=== PATIENT | female | born 1975 | race Two or more races ===

== ENCOUNTER → 2017-07-14 10:13 | Outpatient (CLI) | payer OTHER, SELFPAY ==
[2017-07-14 09:28] VITALS: BP 119/68; BMI 23.0
== END ==
PROVIDERS: Visit Provider Obstetrics & Gynecology
DX: O20.0 Threatened abortion (principal); Z3A.00 Weeks of gestation of pregnancy not specified
CPT/HCPCS: 36415; 84702; 86850; 86900

== ENCOUNTER → 2017-07-14 14:51 | Outpatient (CLI) | payer OTHER, SELFPAY ==
[2017-07-14 09:28] VITALS: BP 119/68; BMI 23.0
[2017-07-14 21:06] LABS: Chlamydia Trachomatis by PCR Negative (Negative); Neisserai gonorrhoeae by PCR Negative (Negative); Probe Check PASS; Sample Adequacy Control PASS; Specimen Processing Control PASS
== END ==
PROVIDERS: Visit Provider Obstetrics & Gynecology
DX: O09.529 Supervision of elderly multigravida, unspecified trimester (principal); Z3A.00 Weeks of gestation of pregnancy not specified; Z12.4 Encounter for screening for malignant neoplasm of cervix
CPT/HCPCS: 87086; 87491; 87591

== ENCOUNTER → 2017-07-15 09:31 | Outpatient (CLI) | payer OTHER, SELFPAY ==
[2017-07-14 09:28] VITALS: BP 119/68; BMI 23.0
--- NOTE | 2017-07-15 09:35 | US_ITS ---
STUDY: FIRST TRIMESTER OBSTETRICAL ULTRASOUND REASON FOR EXAM: Female, 41 years old. Bleeding. LMP: May 16, 2017. TECHNIQUE: Transvaginal PRIOR ULTRASOUND: None. FINDINGS: There is visualization of a single gestational sac in a normal intrauterine position. The mean sac diameter (MSD) measures 2.91 cm, indicating an estimated gestational age (EGA) of 8 weeks, 1 days. The gestational sac shape is within normal limits. There is a visualized yolk sac. The yolk sac measures 10.5 mm. The placenta is non-visualized. There is visualization of an embryo with no cardiac activity, consistent with intrauterine demise. The crown-rump length (CRL) measures 1.38 cm, indicating an estimated gestational age (EGA) of 7 weeks, 5 days. The estimated gestation age (EGA) by LMP is 8 weeks, 4 days. The estimated date of delivery (RIYA) by LMP is February 20, 2018. The estimated gestation age (EGA) by US is 8 weeks, 0 days. The estimated date of delivery (RIYA) by US is February 24, 2018. The uterus measures 13.8 cm x 8.2 size by 7.6 cm. 2 fibroids are seen. The larger measures 2.9 cm is by 2.4 size by 2.2 cm. The cervix is closed. The right ovary is not visualized. The left ovary is not visualized. There is no fluid in the cul de sac. US/Transvaginal w/Preg US IMPRESSION: demise. The age corresponds to 8 weeks. Electronically Signed: Amol Sales MD at 10:19 EST Tel [phone], Service support ,
== END ==
PROVIDERS: Visit Provider Nurse Practitioner Women's Health
DX: O20.0 Threatened abortion (principal); Z3A.00 Weeks of gestation of pregnancy not specified
CPT/HCPCS: 76817

== ENCOUNTER 2017-07-18 05:25 | Day surgery (SDC) | payer OTHER, SELFPAY ==
[2017-07-14 09:28] VITALS: BP 119/68; BMI 23.0
--- NOTE | 2017-07-18 | POC_PTH ---
PATIENT: IWONA CRAVEN LOC: [facility] [place] U#:[id number] AGE/SX: 41/F ROOM: RE07/18/[address]: Dr. Abena Bucio MD : 1975 BED: DIS: 07/18/2017 SPEC #: [id number] RECD: 07/18/17 14:35 STATUS: CATARINO MIRACLE #: [id number] SARTHAK: 07/18/17 00:[address]: Abena Bucio DEPT: SURGICAL PATHOLOGY RECD BY: Tripp Fields ENTERED: 07/18/17 14:35 SP TYPE: PROD CONC OTHR DR: No Primary Care Phys Tissues: Product of conception, NOS Procedures: Surgery Specimen Level IV HEADER OPERATION: Dilation and curettage suction PRE-OP DIAGNOSIS: Missed TISSUE SUBMITTED: Products of conception MICROSCOPIC DIAGNOSIS Endometrium, curettage: Chorionic villi, decidualized stroma and trophoblastic cells consistent with products of conception. AM:jun 07/19/17 MICROSCOPIC DESCRIPTION Slides are reviewed. GROSS DESCRIPTION Received in fixative is one container labeled with the patient's name and designated products of conception. The specimen consists of multiple irregular fragments of pink-mills soft tissue that in aggregate measure 9 x 6.5 x 1 cm. parts are not grossly recognized. [employer] Tractor Operator portions are submitted in one cassette. / AM:jun 07/18/17 TC:5 CPT: 32635
[2017-07-18 06:16] VITALS: BP 105/61; PULSE 73; RESP 16; TEMP 36.7; O2SAT 100; BMI 22.6
[2017-07-18] MEDS: Doxycycline 100 MG CAPSULE PO (07:30)
--- NOTE | 2017-07-18 07:39 | PCM.OPRPT ---
Problem List (1) Missed Status: Acute Report of Operation Date of Procedure: 07/18/17 Pre-Operative Diagnosis: missed ab Post-Operative Diagnosis: same Surgery/Procedure Performed:: Suction D&C Description of Surgical Findings:: 11 week size uterus 9 week missed AB irregular uterine landscape due to suspected submucosal fibroids Type of Anesthesia:: Local MAC Specimen's removed: poc Estimated Blood Loss (mL): 100 Fluids Replaced: crystalloid Description of Procedure: Patient was evaluated preoperatively and found to have a missed at 9 weeks of with a pole measuring only 8 weeks with no heart tones seen. Patient was counseled and offered medical management versus surgical and patient chose suction D&C. Patient received IV anesthesia was prepped and draped in normal sterile fashion in the dorsal lithotomy position. Cervix was grasped with ring forceps and previously dilated to allow passage of a 10 mm suction curette. Uterus sounded to 11cm. Multiple passes were made with the suction curette to remove products of conception and then sharp curettage was formed to confirm all removal of packs of conception. All instruments were removed from the vagina and patient was awoken and taken recovery in stable condition. - Complications none - Admit VTE Documentation VTE Present on Admission: No VTE Mechan Device Prophylaxis: SCD's
--- NOTE | 2017-07-18 07:39 | PCM.DC.D&C ---
Discharge Diet: No Restrictions Discharge Activity: Return to Normal Activity, May Shower, May Take a Tub Bath Allergies/Adverse Reactions: Allergies No Known Allergies Allergy (Unverified 07/14/17 09:28) Medications to take at Discharge vitamin,calcium,gqawdkuu-ktdm-hzcit acid tablet 1 tab PO QDAY 07/14/17 Primary Care Physician: Care Physician,No Primary [Primary Care Provider] - Please Follow Up With: Abena Bucio MD - [phone] When: 2 weeks
[2017-07-18 08:01] VITALS: BP 103/65; BP 105/61; PULSE 69; RESP 18; TEMP 37.2; O2SAT 97
[2017-07-18 08:05] VITALS: BP 105/61; BP 106/65; PULSE 71; RESP 18; O2SAT 97
[2017-07-18 08:10] VITALS: BP 103/72; BP 105/61; PULSE 68; RESP 18; O2SAT 100
[2017-07-18 08:15] VITALS: BP 105/61; BP 106/74; PULSE 64; RESP 16; TEMP 36.5; O2SAT 100
[2017-07-18 09:24] VITALS: BP 105/61
== END 2017-07-18 09:31 | disposition home or self-care (01) ==
LOC: SDC 05:26 → AC 05:27
PROVIDERS: Visit Provider Obstetrics & Gynecology
PROC: (CPT 59812; principal; 2017-07-18 07:00)
DX: O03.4 Incomplete spontaneous abortion without complication (principal)
CPT/HCPCS: 59812; 88305; J7120; J2405

== ENCOUNTER → 2017-08-02 15:03 | Outpatient (CLI) | payer OTHER, SELFPAY ==
--- NOTE | 2017-08-02 | IMM_PTH ---
PATIENT: IWONA CRAVEN LOC: [facility] U#:[id number] AGE/SX: 49/F ROOM: RE08/02/[address]: Dr. Abena Bucio MD : 1975 BED: DIS: SPEC #: [id number] RECD: 08/04/17 13:51 STATUS: CATARINO REBennie #: [id number] SARTHAK: 08/02/17 00:[address]: Abena Bucio DEPT: IMMUNOHISTOCHEMISTRY RECD BY: Libby Bragg ENTERED: 08/04/17 13:52 SP TYPE: IMMUNO OTHR DR: No Primary Care Phys Tissues: A - Endocervical B - Uterine cervix, NOS Procedures: p16 (initial) KI-67 (add) PHYSICIAN & INSTITUTION [place] [id number] SPECIMEN INFORMATION: Tissue Source: A ? ECC, B ? 5 o?clock Clinical Info: JESUS III Specimen Number: [id number] A & B CPT code: 75378 x2, 22099 x2 METHODOLOGY: Deparaffinized sections of prefer/formalin-fixed tissue or PAP/DQ stained slides are incubated with monoclonal/polyclonal antibodies/oligonucleotide probes. Localization is made via biotin free immunoperoxidase method. Appropriate controls are performed and reacted as expected. Results on target cell population are indicated in the following table: RESULTS: ANTIBODY / CLONE RESULT Block A P16 (E6H4) positive, block staining Ki-67 (30-9) positive Block B P16 (E6H4) positive, block staining Ki-67 (30-9) positive These tests were developed and their performance characteristics determined by [facility]. They may not have been cleared or approved by the U.S. Food and Drug Administration. The FDA has determined that such clearance or approval is not necessary. INTERPRETATION: A. ECC: Mild, moderate and severe dysplasia. B. 5 o?clock: Moderate to severe dysplasia. SJ:jun 08/05/17
--- NOTE | 2017-08-02 | ECC_PTH ---
PATIENT: IWONA CRAVEN LOC: [facility] U#:[id number] AGE/SX: 49/F ROOM: RE08/02/[address]: Dr. Abena Bucio MD : 1975 BED: DIS: SPEC #: [id number] RECD: 08/02/17 14:00 STATUS: CATARINO MIRACLE #: [id number] SARTHAK: 08/02/17 00:[address]: Abena Bucio DEPT: SURGICAL PATHOLOGY RECD BY: Tata Major ENTERED: 08/03/17 08:55 SP TYPE: MARIAJOSE CARRASCO DR: Latanya Primary Care Phys Tissues: A - Endocervical B - Endocervical Procedures: Surgery Specimen Level IV HEADER OPERATION: Colposcopy PRE-OP DIAGNOSIS: JESUS III TISSUE SUBMITTED: Duyen BILLY BMaryann 5 o?clock MICROSCOPIC DIAGNOSIS A. ECC: Fragments of squamous epithelium with mild, moderate and severe squamous dysplasia (HGSIL and JESUS I-III). B. Cervix, 5 o?clock, biopsy: Moderate to severe squamous dysplasia (HGSIL and JESUS II-III). Moderate chronic inflammation. DENIS:jun 08/04/17 COMMENT A & B. Immunohistochemistry ([id number]) for surrogate HPV marker (p16) supports the above diagnosis. MICROSCOPIC DESCRIPTION Slides are reviewed. GROSS DESCRIPTION A - Received in fixative is one container labeled with the patient's name and designated ECC. The specimen consists of multiple irregular fragments of mills mucoid tissue that in aggregate measure 1 x 1 x 0.1 cm. The specimen is totally submitted in one cassette. B - Received in fixative is one container labeled with the patient's name and designated 5 o'clock. The specimen consists of one irregular fragment of light mills soft tissue that measures 1 x 0.3 x 0.1 cm. The specimen is totally submitted in one cassette. / DENIS:jun 08/03/17 TC:5 CPT: 06039 x2
== END ==
PROVIDERS: Visit Provider Obstetrics & Gynecology
DX: D06.9 Carcinoma in situ of cervix, unspecified (principal)
CPT/HCPCS: 88305; 88341; 88342

== ENCOUNTER 2017-09-01 05:57 | Day surgery (SDC) | payer OTHER, SELFPAY ==
--- NOTE | 2017-09-01 | IMM_PTH ---
PATIENT: IWONA CRAVEN LOC: [facility] [place] U#:[id number] AGE/SX: 42/F ROOM: RE09/01/[address]: Dr. Abena Bucio MD : 1975 BED: DIS: 09/01/2017 SPEC #: [id number] RECD: 09/02/17 09:53 STATUS: CATARINO REBennie #: [id number] SARTHAK: 09/01/17 00:[address]: Abena Bucio DEPT: IMMUNOHISTOCHEMISTRY RECD BY: Tata Major ENTERED: 09/02/17 09:53 SP TYPE: IMMUNO OT DR: No Primary Care Phys Tissues: Uterine cervix, NOS Procedures: p16 (initial) KI-67 (add) PHYSICIAN & INSTITUTION [place] [id number] SPECIMEN INFORMATION: Tissue Source: A. Cervix Clinical Info: Cervical intraepithelial neoplasia grade III with severe dysplasia Specimen Number: [id number] CPT code: 21201, 04238 METHODOLOGY: Deparaffinized sections of prefer/formalin-fixed tissue or PAP/DQ stained slides are incubated with monoclonal/polyclonal antibodies/oligonucleotide probes. Localization is made via biotin free immunoperoxidase method. Appropriate controls are performed and reacted as expected. Results on target cell population are indicated in the following table: RESULTS: ANTIBODY / CLONE RESULT P16 (E6H4) positive, block staining Ki-67 (30-9) positive, moderate These tests were developed and their performance characteristics determined by [facility]. They may not have been cleared or approved by the U.S. Food and Drug Administration. The FDA has determined that such clearance or approval is not necessary. INTERPRETATION: A. Cervix, biopsy: Moderate to severe squamous dysplasia SJ:yuliana 09/02/17
--- NOTE | 2017-09-01 05:46 | PCM.HP.STD ---
Problem List (1) RENE III (cervical intraepithelial neoplasia grade III) with severe dysplasia Status: Acute History of Present Illness Date of Admission: 09/01/17 Chief Complaint: rene III The patient is a 42 year old F presents for cold knife conization secondary to severe cervical dysplasia. she has a history of abnormal pap smears, and recently had a miscarriage. 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/17 AUTO HEADLIGHT MECHANIC History: - - [facility] Medical History Abnormal Pap smear of cervix (Acute) Family History Father Heart disease Social History Smoking Status: Never smoker alcohol intake: never substance use type: does not use caffeine: No frequency: 3-4 times per week seatbelt use: always do you feel safe at home: Yes additional social history: Lili Reddy- [employer] in [facility] [employer] Pregancy History 4 Elective abortions Hx Para 2 Spontaneous abortions Hx # Term Pregnancies Ectopic pregnancies Hx # Pregnancies Multiple births # of living children Past Pregnancies Del. DateNameGA/WeeksOutcomeRouteBth WeightInfant GenLabor LgthAnesthesiaDel LocatnProviderFOB [id number] [facility] [id number] Latricia Smoking Status: Never smoker Review of Systems Constitutional: Denies: Chills, Fever, Weight Change HEENT: Denies: Head Aches, Sinus Congestion, Sinus Drainage Cardiovascular: Denies: Chest Pain, Palpitations Respiratory: Denies: Cough, Shortness of breath at rest, Sputum production Gastrointestinal: Denies: Abdominal Pain, Nausea, Vomiting Genitourinary: Denies: Dysuria Musculoskeletal: Denies: Joint Pain, Joint Tenderness Skin: Denies: Rash, Wounds Neurological: Denies: Numbness, Tingling, Focal weakness Psychiatric: Denies: Anxiety, Depression, Homicidal Ideations, Suicidal Ideations Hematologic/ Lymphatic: Denies: Easy Bruising, Easy Bleeding VTE Information - Inpt Only VTE Present on Admission: No - Physical Exam General: Alert, Oriented x3, Cooperative HEENT: Atraumatic, EOMI, Normocephalic Neck: Supple, No JVD Lungs: Clear to auscultation, Normal air movement Cardiovascular: Regular rate, No murmurs Abdomen: Bowel Sounds Present, Soft, Non Tender Extremities: No edema Skin: No rashes, No breakdown Musculoskeletal: No Tenderness to Palpation of Joints or Extremities Psych/Mental Status: Normal Affect, Appropriate Comment: Order Caller: uterus not enlarged, cervix without gross lesions, normal adnexa Assessment/Plan 42 yo presents with RENE III 1. RENE III plan cold knife conization due to positive ECC. discussed with patient risk of bleeding, infection. recommend waiting at least 3-6 months prior to next conception. discussed risks of cervical insufficiency.
--- NOTE | 2017-09-01 05:53 | HP.PCM_ITS ---
Problem List (1) RENE III (cervical intraepithelial neoplasia grade III) with severe dysplasia Status: Acute History of Present Illness Date of Admission: 09/01/17 Chief Complaint: rene III The patient is a 42 year old F presents for cold knife conization secondary to severe cervical dysplasia. she has a history of abnormal pap smears, and recently had a miscarriage. 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/17 MILLING/POLISHING OPERATOR History: - - [facility] Medical History Abnormal Pap smear of cervix (Acute) Family History Father Heart disease Social History Smoking Status: Never smoker alcohol intake: never substance use type: does not use caffeine: No frequency: 3-4 times per week seatbelt use: always do you feel safe at home: Yes additional social history: 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 DateNameGA/WeeksOutcomeRouteBth WeightInfant GenLabor LgthAnesthesiaDel LocatnProviderFOB [id number] [facility] [id number] Latricia Smoking Status: Never smoker Review of Systems Constitutional: Denies: Chills, Fever, Weight Change HEENT: Denies: Head Aches, Sinus Congestion, Sinus Drainage Cardiovascular: Denies: Chest Pain, Palpitations Respiratory: Denies: Cough, Shortness of breath at rest, Sputum production Gastrointestinal: Denies: Abdominal Pain, Nausea, Vomiting Genitourinary: Denies: Dysuria Musculoskeletal: Denies: Joint Pain, Joint Tenderness Skin: Denies: Rash, Wounds Neurological: Denies: Numbness, Tingling, Focal weakness Psychiatric: Denies: Anxiety, Depression, Homicidal Ideations, Suicidal Ideations Hematologic/ Lymphatic: Denies: Easy Bruising, Easy Bleeding VTE Information - Inpt Only VTE Present on Admission: No - Physical Exam General: Alert, Oriented x3, Cooperative HEENT: Atraumatic, EOMI, Normocephalic Neck: Supple, No JVD Lungs: Clear to auscultation, Normal air movement Cardiovascular: Regular rate, No murmurs Abdomen: Bowel Sounds Present, Soft, Non Tender Extremities: No edema Skin: No rashes, No breakdown Musculoskeletal: No Tenderness to Palpation of Joints or Extremities Psych/Mental Status: Normal Affect, 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 RENE III plan cold knife conization due to positive ECC. discussed with patient risk of bleeding, infection. recommend waiting at least 3-6 months prior to next conception. discussed risks of cervical insufficiency.
[2017-09-01 06:21] VITALS: BP 109/62; PULSE 71; RESP 16; TEMP 36.4; O2SAT 100; BMI 22.4
[2017-09-01 06:23] LABS: Internal QC Validated? YES +Cl - CLEAR BKGD; Pregnancy, Urine Negative Negative
--- NOTE | 2017-09-01 07:30 | CER_PTH ---
PATIENT: IWONA CRAVEN LOC: [facility] [place] U#:[id number] AGE/SX: 42/F ROOM: RE09/01/[address]: Dr. Abena Bucio MD : 1975 BED: DIS: 09/01/2017 SPEC #: [id number] RECD: 09/01/17 08:08 STATUS: CATARINO MIRACLE #: [id number] SARTHAK: 09/01/17 07:[address]: Abena Bucio DEPT: SURGICAL PATHOLOGY RECD BY: Rocky Salvador ENTERED: 09/01/17 09:35 SP TYPE: CERV OT DR: No Primary Care Phys Tissues: A - Uterine cervix, NOS B - Endocervical Procedures: Surgery Specimen Level IV HEADER OPERATION: Cold knife conization PRE-OP DIAGNOSIS: Cervical intraepithelial neoplasia grade III with severe dysplasia TISSUE SUBMITTED: A ? Cervix, B ? Endocervical curettings MICROSCOPIC DIAGNOSIS A. Cervix, cold knife conization: Vttkibgy-ic-eydogx squamous dysplasia with HPV changes (HGSIL and JESUS II-III). See comment. Dysplastic changes also involve endocervical glands. Chronic cystic cervicitis. Resection margins are free of dysplastic changes. B. Endocervical curettings: Fragments of benign endocervical epithelium and endocervical mucosa and mucus, negative for dysplasia. SJ:juan 09/02/17 COMMENT A. Immunohistochemistry ([id number]) for surrogate HPV marker (p16) supports the above diagnosis. Please make reference to previous specimen [id number] A: ECC with diagnosis of mild, moderate and severe squamous dysplasia. B: Cervix, 5 o?clock, biopsy diagnosis qhfywfla-te-jfxhxf squamous dysplasia. MICROSCOPIC DESCRIPTION Slides are reviewed. GROSS DESCRIPTION A - Received in fixative is one container labeled with the patient's name and designated cervix. The specimen consists of a cold conization specimen measuring 3 cm in diameter and a length of 1.6 cm. No cutaneous mass lesions are identified. No orientation is provided. The nonmucosal surfaces are inked in blue ink. The specimen is radially sectioned and totally submitted in 4 cassettes. B - Received in fixative is one container labeled with the patient's name and designated endocervical curettings. The specimen consists of pinkish-mills mucoid material in aggregate measure 2.1 x 0.5 x less than 0.1 cm. The specimen is totally submitted in 1 cassette. AM/sp 09/01/17 TC:5 CPT: 86276, 58131
[2017-09-01] MEDS: FERRIC SUBSULFATE 8 GM SOLN (07:50)
--- NOTE | 2017-09-01 08:07 | PCM.OPRPT ---
Problem List (1) JESUS III (cervical intraepithelial neoplasia grade III) with severe dysplasia Status: Acute Report of Operation Date of Procedure: 09/01/17 Pre-Operative Diagnosis: JESUS-3 Post-Operative Diagnosis: Same Surgery/Procedure Performed:: cold Knife conization Description of Surgical Findings:: Large cervix Type of Anesthesia:: Local MAC Special Medications: Surgicel Specimen's removed: Cervix and endocervical curettings Drains: none Estimated Blood Loss (mL): 75 cc Fluids Replaced: crystalloid Description of Procedure: Patient was taken to the operating room was placed under MAC anesthesia was prepped and draped in normal sterile fashion the dorsal lithotomy position. Cervix was injected with a paracervical block of 1% lidocaine. Circumferential cone shaped incision was made with the 11 blade scalpel and the specimen sent to pathology for analysis. ECC was collected. The base of the cervix and margins were all cauterized with the Bovie. Surgicel Sturmdorf suture and 2 additional jlvndh-db-iqlyv sutures were used to obtain excellent hemostasis. Monsel's paste was placed over the entire area. Patient was awoken and taken recovery in stable condition Grafts/Implants Used: none - Complications none - Admit VTE Documentation VTE Present on Admission: No VTE Mechan Device Prophylaxis: SCD's
--- NOTE | 2017-09-01 08:10 | OP.PCM_ITS ---
Problem List (1) JESUS III (cervical intraepithelial neoplasia grade III) with severe dysplasia Status: Acute Report of Operation Date of Procedure: 09/01/17 Pre-Operative Diagnosis: JESUS-3 Post-Operative Diagnosis: Same Surgery/Procedure Performed:: cold Knife conization Description of Surgical Findings:: Large cervix Type of Anesthesia:: Local MAC Special Medications: Surgicel Specimen's removed: Cervix and endocervical curettings Drains: none Estimated Blood Loss (mL): 75 cc Fluids Replaced: crystalloid Description of Procedure: Patient was taken to the operating room was placed under MAC anesthesia was prepped and draped in normal sterile fashion the dorsal lithotomy position. Cervix was injected with a paracervical block of 1% lidocaine. Circumferential cone shaped incision was made with the 11 blade scalpel and the specimen sent to pathology for analysis. ECC was collected. The base of the cervix and margins were all cauterized with the Bovie. Surgicel Sturmdorf suture and 2 additional aeptdx-jz-dakbv sutures were used to obtain excellent hemostasis. Monsel's paste was placed over the entire area. Patient was awoken and taken recovery in stable condition Grafts/Implants Used: none - Complications none - Admit VTE Documentation VTE Present on Admission: No VTE Mechan Device Prophylaxis: SCD's
--- NOTE | 2017-09-01 08:13 | PCM.DC.LEE ---
Discharge Diet: No Restrictions Discharge Activity: Return to Normal Activity, May not drive while taking narcotic pain medications. May resume sexual activity in: 4 weeks - Nothing in the vagina for 4 weeks Call your doctor if you observe: Fever of 101 or Higher, Using more than one pad per hour Allergies/Adverse Reactions: Allergies No Known Allergies Allergy (Unverified 08/29/17 11:24) Medications to take at Discharge levonorgestrel-ethinyl estradiol 0.1 mg-20 mcg tablet 1 tab PO QDAY #28 tab 08/05/17 Multivitamin [Multiple Vitamins] 1 each PO DAILY 08/29/17 Naproxen [Naprosyn] 250 - 500 mg PO Q8H PRN PRN #30 tab 09/01/17 Oxycodone HCl/Acetaminophen [Percocet 5-325] 1 - 2 tablet PO Q4H PRN PRN 7 Days #15 tablet 09/01/17 The following prescriptions were given: Oxycodone HCl/Acetaminophen [Percocet 5-325] 1 - 2 tablet PO Q4H PRN PRN 7 Days #15 tablet PRN Reason: Pain Naproxen [Naprosyn] 250 - 500 mg PO Q8H PRN PRN #30 tab PRN Reason: MILD PAIN Primary Care Physician: Care Physician,No Primary [Primary Care Provider] - Please Follow Up With: Abena Bucio MD - [phone] When: in 4 weeks
[2017-09-01 08:15] VITALS: BP 109/62; BP 119/78; PULSE 75; RESP 16; TEMP 36.4; O2SAT 98
[2017-09-01 08:20] VITALS: BP 109/62; BP 116/81; PULSE 72; RESP 16; O2SAT 99
[2017-09-01 08:25] VITALS: BP 109/62; BP 111/74; PULSE 68; RESP 16; O2SAT 99
[2017-09-01 08:30] VITALS: BP 109/62; BP 126/89; PULSE 65; RESP 16; TEMP 36.1; O2SAT 99
[2017-09-01 09:36] VITALS: BP 109/62; BP 110/62; PULSE 70; RESP 18; TEMP 36.8; O2SAT 100
== END 2017-09-01 09:39 | disposition home or self-care (01) ==
LOC: SDC 05:59 → AC 06:01
PROVIDERS: Anesthesiology; Visit Provider Obstetrics & Gynecology
PROC: 0UBC7ZZ Excision of Cervix, Via Natural or Artificial Opening (ICD-10-PCS; CPT 57520; principal; 2017-09-01 07:15)
DX: D06.9 Carcinoma in situ of cervix, unspecified (principal); N72 Inflammatory disease of cervix uteri
CPT/HCPCS: 57520; 81025; 88305; 88341; 88342; J7120